=== PATIENT | female | born 1965 | race Caucasian/White ===

== ENCOUNTER → 2017-09-06 | Outpatient (CLI) | payer BC ==
--- NOTE | 2017-09-06 10:45 | US ---
EXAMINATION TYPE: US pelvic complete DATE OF EXAM: 09/06/2017 COMPARISON: NONE CLINICAL HISTORY: R10.2 pelvic pain. Ablation 5 years ago TECHNIQUE: . Transabdominal sonographic images of the pelvis were acquired Date of LMP: About 5 years ago EXAM MEASUREMENTS: Uterus: 8.3 x 5.8 x 5.8 cm Endometrial Stripe: Unable to assess due to large fibroid Right Ovary: 2.4 x 1.8 x 1.2 cm Left Ovary: 1.3 x 1.3 x 1.4 cm 1. Uterus: Anteverted Multiple probable small fibroids visualized. Larger heterogeneous area visua lized in the fundus measuring 5.1 x 5.5 x 5.2 cm, probable fibroid 2. Endometrium: Unable to assess due to large fibroid 3. Right Ovary: wnl 4. Left Ovary: wnl 5. Bilateral Adnexa: wnl 6. Posterior cul-de-sac: wnl IMPRESSION: 1. Multiple probable uterine leiomyomas with the largest exophytic appearing to arise intramurally an d measuring up to 5.5 cm anterior fundal in location. These obscure the endometrium and endometrial t hickness cannot be measured. 2. Unremarkable appearance of the ovaries.
== END | disposition home or self-care (01) ==
LOC: RADUSWWP 09:35
PROVIDERS: ATTEND Obstetrics & Gynecology
DX: R10.2 Pelvic and perineal pain (principal)
CPT/HCPCS: 76856

== ENCOUNTER → 2017-09-27 | Outpatient (CLI) | payer BC ==
--- NOTE | 2017-09-30 11:48 | MM ---
Reason for exam: screening (asymptomatic). Last mammogram was performed 4 years and 10 months ago. History: Benign left mammotome panel of the left breast, November 25, 2012. Retro-pectoral saline implants in both breasts, 2009. Took hormonal contraceptives for 3 years beginning at age 20. Physical Findings: A clinical breast exam by your physician is recommended on an annual basis and results should be correlated with mammographic findings. MG 3D Screen Mammo Imp/Cad Bilateral CC, MLO, and ID view(s) were taken. XCCL view(s) were taken of the left breast. Prior study comparison: November 14, 2012, CAD bilateral diagnostic mammogram. April 28, 2010, bilateral digital screening mammo w/CAD. There are scattered fibroglandular densities. No significant changes when compared with prior studies. ASSESSMENT: Benign, BI-RAD 2 RECOMMENDATION: Routine screening mammogram of both breasts in 1 year.
== END | disposition home or self-care (01) ==
LOC: RADMAMWWP 10:01
PROVIDERS: ATTEND Obstetrics & Gynecology
DX: Z12.31 Encounter for screening mammogram for malignant neoplasm of breast (principal)
CPT/HCPCS: 77063; 77067

== ENCOUNTER → 2020-09-26 | Outpatient (CLI) | payer BC ==
--- NOTE | 2020-09-28 11:52 | MM ---
Reason for exam: screening (asymptomatic). Last mammogram was performed 3 years ago. History: Benign left mammotome panel of the left breast, November 25, 2012. Retro-pectoral saline implants in both breasts, 2009. Took hormonal contraceptives for 3 years beginning at age 20. Took other hormone beginning at age 55. Physical Findings: A clinical breast exam by your physician is recommended on an annual basis and results should be correlated with mammographic findings. MG 3D Screen Mammo Imp/Cad Bilateral CC and MLO view(s) were taken. Prior study comparison: September 27, 2017, bilateral MG 3d screen mammo imp/cad. The breast tissue is heterogeneously dense. This may lower the sensitivity of mammography. Bilateral retropectoral saline implants. Right with multiple folds, stable and smaller than left. ASSESSMENT: Benign, BI-RAD 2 RECOMMENDATION: Routine screening mammogram of both breasts in 1 year.
== END | disposition home or self-care (01) ==
LOC: RADMAMWWP 14:59
PROVIDERS: ATTEND Obstetrics & Gynecology
DX: Z12.31 Encounter for screening mammogram for malignant neoplasm of breast (principal)
CPT/HCPCS: 77063; 77067

== ENCOUNTER → 2021-05-22 | Outpatient (CLI) | payer BC ==
--- NOTE | 2021-05-22 17:09 | US ---
EXAMINATION TYPE: US pelvis complete transvag DATE OF EXAM: 05/22/2021 COMPARISON: NONE CLINICAL HISTORY: R10.2 PELVIC PAIN. right pelvic pain. ablation TECHNIQUE: Transvaginal (TV) and Transabdominal (TA) . Transabdominal sonographic images of the pel vis were acquired. Transvaginal sonographic images were medically necessary to better assess the fol lowing anatomy: ovaries Date of LMP: 8 years ago EXAM MEASUREMENTS: Uterus: 8.0 x 5.5 x 4.3 cm Endometrial Stripe: 0.6 cm Right Ovary: Obscured by overlying bowel gas Left Ovary: Obscured by overlying bowel gas 1. Uterus: Anteverted probable fibroid as on prior exam = 4.7 x 4.1 x 4.8cm . Previous measurement 5.1 x 5.5 x 5.2 cm. 2. Endometrium: unable to clearly visualize due to fibroid 3. Right Ovary: Obscured by overlying bowel gas 4. Left Ovary: Obscured by overlying bowel gas 5. Bilateral Adnexa: appears wnl 6. Posterior cul-de-sac: wnl IMPRESSION: 1. Fibroid within the uterus.
== END | disposition home or self-care (01) ==
LOC: RADUSWWP 12:18
PROVIDERS: ATTEND Obstetrics & Gynecology
DX: D25.9 Leiomyoma of uterus, unspecified (principal)
CPT/HCPCS: 76830; 76856

== ENCOUNTER → 2021-06-27 | Outpatient (CLI) | payer BC ==
--- NOTE | 2021-06-27 12:36 | CT ---
EXAMINATION TYPE: CT abdomen pelvis w con DATE OF EXAM: 06/27/2021 COMPARISON: Pelvic ultrasound dated 05/22/2021 HISTORY: RLQ PAIN CT DLP: 496.1 mGycm Automated exposure control for dose reduction was used. TECHNIQUE: Helical acquisition of images was performed from the lung bases through the pelvis. CONTRAST: Performed with Oral Contrast and with IV Contrast, patient injected with 100 mL of Isovue 300. FINDINGS: LUNG BASES: No significant abnormality is appreciated. LIVER/GB: 7 mm left hepatic lobe cyst. No other definite hepatic focal lesion. Unremarkable gallbladd er. PANCREAS: No significant abnormality is seen. SPLEEN: No significant abnormality is seen. ADRENALS: No significant abnormality is seen. KIDNEYS: No significant abnormality is seen. FREE AIR: No free air is visualized. RETROPERITONEAL ADENOPATHY: None visualized REPRODUCTIVE ORGANS: Bulky uterus likely due to the uterine fibroid described on the previous ultraso und. Suspected small subserosal fibroid measuring 11 mm in the left side of the uterus. No gross adne xal mass. URINARY BLADDER: No significant abnormality is seen. PELVIC ADENOPATHY: None visualized. OSSEOUS STRUCTURES: Right L4-5 and left L5-S1 facet osteoarthropathy. No aggressive bone lesion. BOWEL: Unremarkable stomach, duodenum and small bowel. Moderate fecal loading of the colon. Normal a ppendix. OTHER: Unremarkable abdominal aorta and IVC. No sizable ascites. Bilateral breast prosthesis. IMPRESSION: No definite acute abnormality seen in the abdomen or the pelvis. Incidental findings as described abo ve.
== END | disposition home or self-care (01) ==
LOC: RADCTMAIN 09:54
PROVIDERS: ATTEND Obstetrics & Gynecology
DX: R10.2 Pelvic and perineal pain (principal); R10.31 Right lower quadrant pain
CPT/HCPCS: 74177; Q9967

== ENCOUNTER → 2022-04-25 | Outpatient (CLI) | payer BC ==
--- NOTE | 2022-04-27 13:43 | MM ---
Reason for Exam: Screening (asymptomatic). Last mammogram was performed 1 year(s) and 7 month(s) ago. Patient History: Menarche at age 15. First Full-Term at age 20. Postmenopausal. Hormonal Contraceptives for 3 years from age 20 until age 23. 11/25/2012, Benign Core Biopsy on the left side. 2009, Bilateral Implants. Risk Values: Suad 5 year model risk: 1.0%. NCI Lifetime model risk: 7.2%. Prior Study Comparison: 11/14/2012 Bilateral Diagnostic Mammogram, [facility]. 09/27/2017 Bilateral Screening Mammogram, [facility]. 09/26/2020 Bilateral Screening Mammogram, [facility]. Tissue Density: The breast tissue is heterogeneously dense. This may lower the sensitivity of mammography. Findings: Analyzed By CAD. There is no suspicious group of microcalcifications or new suspicious mass in either breast. Bilateral implants are intact. Overall Assessment: Benign, BI-RAD 2 Management: Screening Mammogram of both breasts in 1 year. A clinical breast exam by your physician is recommended on an annual basis and results should be correlated with mammographic findings. Electronically signed and approved by: Aldo Faulkner M.D.
== END | disposition home or self-care (01) ==
LOC: RADMAMWWP 12:24
PROVIDERS: ATTEND Obstetrics & Gynecology
DX: Z12.31 Encounter for screening mammogram for malignant neoplasm of breast (principal); Z78.0 Asymptomatic menopausal state; Z98.82 Breast implant status
CPT/HCPCS: 77063; 77067

== ENCOUNTER → 2023-07-31 | Outpatient (CLI) | payer BC ==
--- NOTE | 2023-08-01 17:52 | MM ---
Reason for Exam: Screening (asymptomatic). Last mammogram was performed 1 year(s) and 4 month(s) ago. Patient History: Menarche at age 15. First Full-Term at age 20. Postmenopausal. Hormonal Contraceptives for 3 years from age 20 until age 23. 11/25/2012, Benign Core Biopsy on the left side. 2009, Bilateral Implants. Risk Values: Suad 5 year model risk: 1.0%. NCI Lifetime model risk: 7.0%. Prior Study Comparison: 09/27/2017 Bilateral Screening Mammogram, [facility]. 09/26/2020 Bilateral Screening Mammogram, [facility]. 04/25/2022 Bilateral MG 3D screen mammo imp/cad., [facility]. Tissue Density: There are scattered areas of fibroglandular density. Findings: Analyzed By CAD. The pattern is symmetrical. Bilateral breast prostheses are present. Core marker is on the left mediolateral oblique view. No suspicious groups of microcalcifications, spiculated or lobular masses, architectural distortion or other secondary signs of malignancy are mammographically apparent. Overall Assessment: Benign, BI-RAD 2 Management: Screening Mammogram of both breasts in 1 year. A negative mammogram report should not preclude additional follow up of suspicious palpable abnormalities. Patient should continue monthly self breast exam. A clinical breast exam by your physician is recommended on an annual basis and results should be correlated with mammographic findings. Note on Suad scores and lifetime risk: 1. A Suad score greater than 3% is considered moderate risk. If this is the case, consider specialist referral to assess eligibility for a risk reducing agent. 2. If overall lifetime risk for the development of breast cancer is 20% or higher, the patient may qualify for future screening with alternating mammogram and breast MRI. Electronically signed and approved by: Parker Villasenor D.O. Radiologis
== END | disposition home or self-care (01) ==
LOC: RADMAMWWP 11:22
PROVIDERS: ATTEND Obstetrics & Gynecology
DX: Z12.31 Encounter for screening mammogram for malignant neoplasm of breast (principal); Z78.0 Asymptomatic menopausal state; Z98.82 Breast implant status
CPT/HCPCS: 77063; 77067

== ENCOUNTER → 2024-08-12 | Outpatient (CLI) | payer BC ==
--- NOTE | 2024-08-12 13:18 | MM ---
Reason for Exam: Screening (asymptomatic). Last screening mammogram was performed 12 month(s) ago. Patient History: Menarche at age 15. First Full-Term at age 20. Postmenopausal. Hormonal Contraceptives for 3 years from age 20 until age 23. 11/25/2012, Benign Core Biopsy on the left side. 2009, Bilateral Implants. Risk Values: Suad 5 year model risk: 1.0%. NCI Lifetime model risk: 6.9%. Prior Study Comparison: 09/26/2020 Bilateral Screening Mammogram, [facility]. 04/25/2022 Bilateral MG 3D screen mammo imp/cad., [facility]. 07/31/2023 Bilateral MG 3D screen mammo imp/cad., [facility]. Tissue Density: The breasts are heterogeneously dense, which may obscure small masses. Findings: Analyzed By CAD. Bilateral breast implants are redemonstrated. There is no suspicious new group of microcalcifications or new suspicious mass in either breast. Overall Assessment: Benign, BI-RAD 2 Management: Screening Mammogram of both breasts in 1 year. . Patient should continue monthly self-breast exams. A clinical breast exam by your physician is recommended on an annual basis. This exam should not preclude additional follow-up of suspicious palpable abnormalities. Note on Suad scores and lifetime risk: 1. A Suad score greater than 3% is considered moderate risk. If this is the case, consider specialist referral to assess eligibility for a risk reducing agent. 2. If overall lifetime risk for the development of breast cancer is 20% or higher, the patient may qualify for future screening with alternating mammogram and breast MRI. [facility], , 08/12/2024 1:14 PM. Electronically signed and approved by: Aldo Faulkner M.D.
== END | disposition home or self-care (01) ==
LOC: RADMAMWWP 12:32
PROVIDERS: ATTEND Obstetrics & Gynecology
DX: Z12.31 Encounter for screening mammogram for malignant neoplasm of breast (principal); R92.333 Mammographic heterogeneous density, bilateral breasts; Z78.0 Asymptomatic menopausal state; Z92.0 Personal history of contraception; Z98.82 Breast implant status
CPT/HCPCS: 77063; 77067